=== PATIENT | male | born 2000 | race Caucasian/White ===

== ENCOUNTER 2023-05-30 07:37 | Emergency (ER) | payer MEDICAID ==
[~2023-05-30] VITALS: Ht 167.6 cm; Wt 81.6 kg
[2023-05-30 07:45] VITALS: BP 128/65; PULSE 85; RESP 18; TEMP 98.6; O2SAT 100
== END 2023-05-30 08:39 | disposition home or self-care (01) ==
LOC: ER 07:37
DX: S91.011D Laceration without foreign body, right ankle, subsequent encounter (principal); F12.90 Cannabis use, unspecified, uncomplicated; X58.XXXD Exposure to other specified factors, subsequent encounter
CPT/HCPCS: 99281